=== PATIENT | male | born 1990 | race Caucasian/White ===

== ENCOUNTER 2018-06-01 06:23 | Emergency (ER) | payer OTHER ==
[2018-06-01 07:22] VITALS: TEMP 98.3; BMI 32.1
[2018-06-01] MEDS ORDERED: SODIUM CHLORIDE 1,000 ML IV STA (07:33)
[2018-06-01 07:59] LABS: BASO % 0.6 % (0-2.0); EOS % 3.7 % (0-4.5); HEMATOCRIT 51.4 % (35.4-49); LYMPH % 25.8 % (8-40); MCH 29.9 pg (25.7-33.7); MCHC 33.1 g/dl (32.0-35.9); MEAN CELL VOLUME 90.2 fl (80-96); MEAN PLT VOLUME 8.4 fl (7.5-11.1); NEUT % 61.9 % (42.8-82.8); PLATELET COUNT 268 K/MM3 (134-434); RDW 12.7 % (11.9-15.9)
[2018-06-01 08:44] LABS: ALBUMIN 4.6 g/dl (3.4-5.0); ALK PHOS 73 U/L (45-117); ANION GAP 7 MMOL/L (8-16); BILIRUBIN,TOTAL 0.5 mg/dL (0.2-1); BLOOD UREA NITROGEN 10 mg/dL (7-18); CALCIUM 9.6 mg/dL (8.5-10.1); CHLORIDE 105 mmol/L (98-107); CO2 26 mmol/L (21-32); CREATININE 1.1 mg/dL (0.55-1.3); GLUCOSE,RANDOM 93 mg/dL (74-106); MAGNESIUM 2.3 mg/dL (1.8-2.4); POTASSIUM 4.3 mmol/L (3.5-5.1); SGOT/AST 21 U/L (15-37); SGPT/ALT 49 U/L (13-61); SODIUM 138 mmol/L (136-145); TOT PROT 7.7 g/dl (6.4-8.2)
--- NOTE | 2018-06-01 08:59 | PDOC ---
History of Present Illness - General Chief Complaint: Weakness Stated Complaint: SORE THROAT Time Seen by Provider: 06/01/18 07:32 History Source: Patient, Family Exam Limitations: Clinical Condition - History of Present Illness Initial Comments: 06/01/18 08:56 Patient seen and evaluated immediately on arrival. This H&P is being recorded after a period of observation. 27-year-old male with history of diet-controlled diabetes presents to the ER accompanied by his uncle for altered mental status, weakness, malaise, perioral and bilateral hand paresthesias. Patient's had numerous similar episodes in the past there were all related to hypoglycemia and resolved after administration of oral glucose. Patient received ice tea and Coca-Cola prior to arrival. Patient denies trauma or toxic ingestion. No seizure-like activity was reported. Patient has strong family history of seizures but has never suffered one in the past. REVIEW OF SYSTEMS Unable to obtain due to patient's condition EXAMINATION CONSTITUTIONAL: Patient is awake and alert; well-nourished, appears confused; in no apparent distress HEAD: Normocephalic; atraumatic EYES: PERRL; EOM intact; no scleral icterus, no photophobia; ENMT: External appears normal; normal oropharynx NECK: Supple; non-tender; no cervical lymphadenopathy; Kernig/Brudzinski are negative; CARD: Normal S1, S2; no murmurs, rubs, or gallops RESP: Normal chest excursion with respiration; breath sounds clear and equal bilaterally; no wheezes, rhonchi, or rales ABD: Soft, non-distended; non-tender; no palpable organomegaly, no palpable hernias EXT: Normal ROM in all four extremities; non-tender to palpation; distal pulses intact SKIN: Warm, dry, no petechia NEURO: Patient is alert, oriented to self only; moving all extremities symmetrically; cranial nerves II through XII are grossly intact; motor is 5 of 5 4; no pronation drift; gait is stable. Past History - Past Medical History Allergies/Adverse Reactions: Allergies Allergy/AdvReac Type Severity Reaction Status Date / Time No Known Allergies Allergy Verified 06/01/18 07:14 Home Medications: Ambulatory Orders Dextroamphetamine/Amphetamine [Adderall 10 mg Tablet] 20 mg PO DAILY 06/01/18 COPD: No Diabetes: (hypoglycemia) - Suicide/Smoking/Psychosocial Hx Smoking History: Current every day smoker Number of Cigarettes Smoked Daily: 10 Information on smoking cessation initiated: No Hx Alcohol Use: Yes Drug/Substance Use Hx: No *Physical Exam - Vital Signs Last Vital Signs Temp Pulse Resp BP Pulse Ox 98.3 F 96 H 26 H 133/87 97 06/01/18 07:07 06/01/18 07:07 06/01/18 07:07 06/01/18 07:07 06/01/18 07:07 ED Treatment Course - LABORATORY CBC & Chemistry Diagram: 06/01/18 07:31 06/01/18 07:31 - ADDITIONAL ORDERS Additional order review: Laboratory Results 06/01/18 06/01/18 07:31 07:18 Sodium 138 Potassium 4.3 Chloride 105 Carbon Dioxide 26 Anion Gap 7 L BUN 10 Creatinine 1.1 Creat Clearance w eGFR > 60 POC Glucometer 88.66663 Random Glucose 93 Calcium 9.6 Magnesium 2.3 Total Bilirubin 0.5 AST 21 ALT 49 Alkaline Phosphatase 73 Total Protein 7.7 Albumin 4.6 Salicylates 2.6 L Alcohol, Quantitative < 3.0 06/01/18 06/01/18 07:31 07:18 RBC 5.70 H MCV 90.2 MCHC 33.1 RDW 12.7 MPV 8.4 Neutrophils % 61.9 Lymphocytes % 25.8 Monocytes % 8.0 Eosinophils % 3.7 Basophils % 0.6 POC Glucometer 88.73811 - Medications Given in the ED: ED Medications Discontinued Medications Generic Name Dose Route Start Last Admin Trade Name Freq PRN Reason Stop Dose Admin Sodium Chloride 1,000 mls @ 1,000 mls/hr 06/01/18 07:33 06/01/18 07:56 Normal Saline - IV 06/01/18 08:32 1,000 mls/hr ASDIR STA Administration Medical Decision Making - Medical Decision Making 06/01/18 08:59 27-year-old male presents with altered mental status, paresthesias, generalized weakness and malaise. Differential diagnoses includes LABORATORY CHEMICAL ASSISTANT pathology versus resolving hypoglycemia versus toxic metabolic syndrome; we'll obtain CBC/CMP/ drug screen/salicylate/acetaminophen level. Will obtain head CT. We'll administer IV fluids. Will reassess. 06/01/18 09:49 Patient reassessed. Patient is resting comfortably; patient is a no 3 with no focal neurological deficits. Will obtain CT head. We'll continue to observe. Patient's tolerated a meal. 06/01/18 11:[address] of head shows no evidence of acute intracranial pathology. My suspicion the patient's symptoms are caused by a seizure are relatively low. He is safe for outpatient discharge with follow-up. Urine tox is positive for marijuana and amphetamines. Patient reports that he takes Adderall as prescribed. He smokes marijuana infrequently. Will discharge with outpatient follow-up. *DC/Admit/Observation/Transfer Diagnosis at time of Disposition: Weakness Altered mental status Qualifiers: Altered mental status type: unspecified Qualified Code(s): R41.82 - Altered mental status, unspecified - Discharge Dispostion Disposition: HOME Condition at time of disposition: Stable - Referrals Referrals: Eliu Foster MD [Staff Physician] - - Patient Instructions Printed Discharge Instructions: DI for Muscle Weakness - Post Discharge Activity
[2018-06-01 10:05] LABS: COCAINE, UR NEGATIVE ng/ml (CUTOFF=300); METHADONE, UR NEGATIVE ng/ml (CUTOFF=300); OPIATES, URI NEGATIVE ng/ml (CUTOFF=300); PHENCYCLIDINE,URINE NEGATIVE ng/ml (CUTOFF=25); URINE BARBITURATES NEGATIVE ng/ml (CUTOFF=200); URINE BENZODIAZEPINES NEGATIVE ng/ml (CUTOFF=200)
[2018-06-01 10:16] LABS: URINE AMPHETAMINES POSITIVE ng/ml (CUTOFF=500)
--- NOTE | 2018-06-01 11:26 | EKG ---
Test Reason : Blood Pressure : / mmHG Vent. Rate : 086 BPM Atrial Rate : 086 BPM P-R Int : 138 ms QRS Dur : 098 ms QT Int : 376 ms P-R-T Axes : 039 033 055 degrees QTc Int : 449 ms NORMAL SINUS RHYTHM NONSPECIFIC T WAVE ABNORMALITY ABNORMAL ECG NO PREVIOUS ECGS AVAILABLE Confirmed by CASSIE SOTELO, COLE ([id number]) on 06/01/2018 11:26:22 AM Referred By: Confirmed By:CLOE MATTHEWS MD
[2018-06-01 11:52] VITALS: BP 125/87; PULSE 88
== END 2018-06-01 11:52 | disposition home or self-care (01) ==
LOC: JER 06:23
PROC: 3E0337Z Introduction of Electrolytic and Water Balance Substance into Peripheral Vein, Percutaneous Approach (ICD-10-PCS; principal; 2018-06-01)
DX: R41.82 Altered mental status, unspecified (principal); R73.03 Prediabetes
CPT/HCPCS: 36415; 70450-TC; 80053; 80307; 82962; 83735; 85025; 93005; 93010; 99283-25; J7030